=== PATIENT | female | born 2000 | race Caucasian/White ===

== ENCOUNTER 2021-09-15 09:11 | Outpatient (CLI) | payer OTHER, SELFPAY ==
[2021-09-15 13:44] LABS: Chloride* 104 mmol/L (96-114); Potassium* 4.7 mmol/L (3.6-5.1); Sodium* 138 mmol/L (135-149)
[2021-09-15 13:47] LABS: Blood Urea Nitrogen* 17 mg/dL (5-24); Calcium* 9.4 mg/dL (8.7-10.8); Carbon Dioxide* 25 mmol/L (20-32); Cholesterol* 193 mg/dL (90-199); Creatinine* 0.8 mg/dL (0.6-1.2); Estimated Glomerular Filt Rate 109 ml/min; Glucose* 97 mg/dL (60-115); Triglycerides* 74 mg/dL (40-149)
[2021-09-15 13:48] LABS: HDL Cholesterol* 79 mg/dL (>=50); LDL Cholesterol Calculated 99 mg/dL (<100)
== END 2021-09-15 09:12 | disposition home or self-care (01) ==
PROVIDERS: PCP Emergency Medicine; Visit Provider Emergency Medicine
DX: Z00.00 Encounter for general adult medical examination without abnormal findings (principal); R10.32 Left lower quadrant pain; F41.9 Anxiety disorder, unspecified; R10.31 Right lower quadrant pain
CPT/HCPCS: 80048; 80061